=== PATIENT | female | born 1985 | race Caucasian/White ===

== ENCOUNTER 2017-11-18 15:44 | Emergency (ER) | payer OTHER, SELFPAY ==
--- NOTE | 2017-11-18 16:31 | RAD ---
4 VIEWS RIGHT KNEE: Date: 11/18/17 HISTORY: Pain. COMPARISON: None. FINDINGS/IMPRESSION: No significant joint effusion. Joint spaces are preserved. No fracture or malalignment. POS: CET
== END 2017-11-18 16:43 | disposition home or self-care (01) ==
LOC: MADERS 15:44
DX: M25.561 Pain in right knee (principal); M54.2 Cervicalgia; Z79.84 Long term (current) use of oral hypoglycemic drugs; Z79.899 Other long term (current) drug therapy; F41.9 Anxiety disorder, unspecified; V43.62XA Car passenger injured in collision with other type car in traffic accident, initial encounter
CPT/HCPCS: G0390